=== PATIENT | male | born 1980 | race American Indian/Alaskan Native ===

== ENCOUNTER 2017-10-24 14:28 | Emergency (ER) | payer SELFPAY ==
[2017-10-24 14:41] VITALS: BP 122/83
--- NOTE | 2017-10-24 16:13 | Emergency Department Report ---
ED Chest Pain HPI - General Chief Complaint: Chest Pain Stated Complaint: CHEST SPASM Time Seen by Provider: 10/24/17 15:43 Source: patient Mode of arrival: Ambulatory Limitations: No Limitations - History of Present Illness Initial Comments: 37-year-old male no Arte[place] came past medical history presents to the hospital complaining of chest wall soreness that started while stretching this a.m. Patient states it feels like a muscle strain/spasm. Pain is rated 5/10 in intensity. Pain was worse moving and palpation. Patient took Motrin and Tylenol and now is pain-free. Denies shortness of breath, nausea, vomiting, diaphoresis, Numbness, edema, or history of PE/DVT. 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 He is requesting a work excuse since he did not go into work today. - Related Data Previous Rx's Medication Instructions Recorded Last Taken Type Ibuprofen [Motrin] 800 mg PO Q8HR PRN #30 tablet 10/24/17 Unknown Rx Allergies Allergy/AdvReac Type Severity Reaction Status Date / Time No Known Allergies Allergy Unverified 10/24/17 14:42 Heart Score - HEART Score History: Slightly suspicious EKG: Normal Age: < 45 Risk factors: No known risk factors Troponin: < normal limit (not peformed) HEART Score: 0 ED Review of Systems ROS: Stated complaint: CHEST SPASM Other details as noted in HPI Comment: All other systems reviewed and negative ED Past Medical Hx - Past Medical History Previous Medical History?: No - Surgical History Past Surgical History?: No - Social History Smoking Status: Current Some Day Smoker Substance Use Type: None - Medications Home Medications: Home Medications Medication Instructions Recorded Confirmed Last Taken Type Ibuprofen [Motrin] 800 mg PO Q8HR PRN #30 tablet 10/24/17 Unknown Rx ED Physical Exam - General Limitations: No Limitations - Other Other exam information: General: No limitations, patient is alert in no acute distress Head exam: Atraumatic, normocephalic Eyes exam: Normal appearance, pupils equal reactive to light, extraocular movements intact ENT: Moist mucous membrane, normal oropharynx Neck exam: Normal inspection, full range of motion, no meningismus nontender Respiratory exam: Clear to auscultation bilateral, no wheezes, rales, crackles. Chest wall nontender to Cardiovascular: Normal rate and rhythm, normal heart sounds Abdomen: Soft, nondistended, and nontender, with normal bowel sounds, no rebound, or guarding Extremity: Full range of motion normal inspection no deformity, no calf tenderness or edema Back: Normal Inspection, full range of motion, no tenderness Neurologic: Alert, oriented x3, cranial nerves intact, no motor or sensory deficit Psychiatric: normal affect, normal mood Skin: Warm, dry, intact ED Course Vital Signs 10/24/17 14:36 Temperature 98.3 F Pulse Rate 88 Respiratory 18 Rate Blood Pressure 122/83 O2 Sat by Pulse 97 Oximetry PAWAN score - Pawan Score Age > 65: (0) No Aspirin use within the Past 7 Days: (0) No 3 or more CAD Risk Factors: (0) No 2 or more Angina events in past 24 hrs: (0) No Known CAD with more than 50% Stenosis: (0) No Elevated Cardiac Markers: (0) No ST Deviation Greater than 0.5mm: (0) No PAWAN Score: 0 ED Medical Decision Making - EKG Data -: EKG Interpreted by Ut EKG shows normal: sinus rhythm, axis (qrs 39), QRS complexes (qrsd 77), ST-T waves (no stemi/t inv) Rate: normal - EKG Data When compared to previous EKG there are: previous EKG unavailable - Medical Decision Making Patient appears to be musculoskeletal since exacerbated while stretching Initially reproducible with movement and palpation but improved with over-the- counter medication Work excuse will be provided Follow-up recommended - Differential Diagnosis MSK pain, PE, ME, costochondritis Critical Care Time: No Critical care attestation.: If time is entered above; I have spent that time in minutes in the direct care of this critically ill patient, excluding procedure time. ED Disposition Clinical Impression: Strain of chest wall Disposition: DC-01 TO HOME OR SELFCARE Is pt being admited?: No Does the pt Need Aspirin: No Condition: Stable Instructions: Muscle Strain (ED), Thoracic Pain (ED) Additional Instructions: Take the medication as prescribed. Follow up with your doctor. Return if symptoms worsen as indicated by your discharge instructions Prescriptions: Ibuprofen [Motrin] 800 mg PO Q8HR PRN #30 tablet PRN Reason: Pain, Moderate (4-6) Referrals: [facility] [Provider Group] - 3-5 Days (Primary care clinic) ODALIS BECKER MD [Staff Physician] - 3-5 Days (Primary care doctor) Forms: Work/School Release Form(ED) Time of Disposition: 16:15
== END 2017-10-24 16:47 | disposition home or self-care (01) ==
LOC: ED 14:28
DX: S29.011A Strain of muscle and tendon of front wall of thorax, initial encounter (principal); F17.200 Nicotine dependence, unspecified, uncomplicated; X58.XXXA Exposure to other specified factors, initial encounter; Y93.89 Activity, other specified; Y92.89 Other specified places as the place of occurrence of the external cause; Y99.8 Other external cause status
CPT/HCPCS: 93005; 93010; 99282

== ENCOUNTER 2017-12-04 06:21 | Emergency (ER) | payer SELFPAY ==
[2017-12-04] MEDS ORDERED: ULTRAM PO ONE (06:45)
--- NOTE | 2017-12-04 06:52 | Emergency Department Report ---
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 For probably reveals noted chest soreness this morning 08/12 exacerbated by movement is no shortness of breath no nausea vomiting no back pain no dizziness no cardiac or hypertensive history. Pain is reduced. Reproducible to palpation given her age and history we'll check chest x-ray and EKG if normal will DC to home with nsaids and muscle relaxante for musculoskeletal pain. MD Complaint: chest pain Onset/Timin -: days(s) Onset: during exertion Pain Location: right chest (chest wall ) Pain Radiation: none Severity: moderate Severity scale (0 -10): 4 Quality: aching Consistency: intermittent Improves With: medication-other (ibuprofen ) Worsens With: movement, other (heavy lifting ) re: denies: nausea, vomting, diaphoresis, dyspnea, sense of impending doom Other Symptoms: denies: cough, fever, syncope, rash, acid taste in mouth, leg swelling, palpitations, burping Treatments Prior to Arrival: none Aspirin use within the Past 7 Days: (0) No - Related Data Previous Rx's Medication Instructions Recorded Last Taken Type Ibuprofen [Motrin] 800 mg PO Q8HR PRN #30 tablet 10/24/17 Unknown Rx Cyclobenzaprine [Flexeril] 10 mg PO TID PRN #30 tablet 12/04/17 Unknown Rx Menthol/Camphor [[place] 1 applicatio TP TID PRN #1 tube 12/04/17 Unknown Rx Ointment] Naproxen [Naprosyn] 500 mg PO BID PRN #30 tablet 12/04/17 Unknown Rx Allergies Allergy/AdvReac Type Severity Reaction Status Date / Time No Known Allergies Allergy Verified 12/04/17 06:37 Heart Score - HEART Score History: Slightly suspicious EKG: Normal Age: < 45 Risk factors: No known risk factors Troponin: < normal limit HEART Score: 0 ED Review of Systems ROS: Stated complaint: RT UPPER CHEST PAIN Other details as noted in HPI Constitutional: denies: chills, fever Eyes: denies: eye pain, eye discharge, vision change ENT: denies: ear pain, throat pain Respiratory: denies: cough, shortness of breath, wheezing Cardiovascular: denies: chest pain, palpitations Endocrine: no symptoms reported Gastrointestinal: denies: abdominal pain, nausea, diarrhea Genitourinary: denies: urgency, dysuria Musculoskeletal: myalgia. denies: back pain, joint swelling, arthralgia Skin: denies: rash, lesions Neurological: denies: headache, weakness, paresthesias Psychiatric: denies: anxiety, depression Hematological/Lymphatic: denies: easy bleeding, easy bruising ED Past Medical Hx - Past Medical History Previous Medical History?: No - Surgical History Past Surgical History?: Yes Additional Surgical History: knee right - Social History Smoking Status: Current Every Day Smoker Substance Use Type: Alcohol - Medications Home Medications: Home Medications Medication Instructions Recorded Confirmed Last Taken Type Ibuprofen [Motrin] 800 mg PO Q8HR PRN #30 tablet 10/24/17 Unknown Rx Cyclobenzaprine [Flexeril] 10 mg PO TID PRN #30 tablet 12/04/17 Unknown Rx Menthol/Camphor [[place] 1 applicatio TP TID PRN #1 tube 12/04/17 Unknown Rx Ointment] Naproxen [Naprosyn] 500 mg PO BID PRN #30 tablet 12/04/17 Unknown Rx ED Physical Exam - General Limitations: No Limitations General appearance: alert, in no apparent distress - Head Head exam: Present: atraumatic, normocephalic - Eye Eye exam: Present: normal appearance - ENT ENT exam: Present: mucous membranes moist - Neck Neck exam: Present: normal inspection - Respiratory Respiratory exam: Present: normal lung sounds bilaterally, chest wall tenderness (right sided chest wall tenderness ). Absent: respiratory distress, wheezes, stridor, accessory muscle use, decreased breath sounds, prolonged expiratory - Cardiovascular Cardiovascular Exam: Present: regular rate, normal rhythm. Absent: systolic murmur, diastolic murmur, rubs, gallop - GI/Abdominal GI/Abdominal exam: Present: soft, normal bowel sounds - Rectal Rectal exam: Present: deferred - Extremities Exam Extremities exam: Present: normal inspection, full ROM - Back Exam Back exam: Present: normal inspection. Absent: full ROM, tenderness, CVA tenderness (R), CVA tenderness (L), muscle spasm, paraspinal tenderness, vertebral tenderness, rash noted - Neurological Exam Neurological exam: Present: alert, oriented X3, CN II-XII intact, normal gait - Psychiatric Psychiatric exam: Present: normal affect, normal mood - Skin Skin exam: Present: warm, dry, intact, normal color. Absent: rash ED Course Vital Signs 12/04/17 06:33 Temperature 98.1 F Pulse Rate 79 Respiratory 18 Rate Blood Pressure 146/92 O2 Sat by Pulse 99 Oximetry PAWAN score - Pawan Score Age > 65: (0) No Aspirin use within the Past 7 Days: (0) No 3 or more CAD Risk Factors: (0) No 2 or more Angina events in past 24 hrs: (0) No Known CAD with more than 50% Stenosis: (0) No Elevated Cardiac Markers: (0) No ST Deviation Greater than 0.5mm: (0) No PAWAN Score: 0 ED Medical Decision Making - Radiology Data Radiology results: report reviewed, image reviewed normal cxr: no opaciteies, no infiltrates. - Medical Decision Making will obtain cxr, ekg, if both normal will tx for chest wall pain musculoskeletal pain, discussed same with patient, patient verbalized agreement and understnading of same, pt will dispo'd after results of cxr and ekg: pt care signed out to [employer]. at this time will dispo patient appropriately after diagnostics, pt resting quitely at this time with nad. cxr complete no infiltrates no opacities, ekg completed noted, plan: dc to home wtih nsaids mucle relaxants, follow up with pcp in 2-3 days Critical care attestation.: If time is entered above; I have spent that time in minutes in the direct care of this critically ill patient, excluding procedure time. ED Disposition Clinical Impression: Chest wall muscle strain Qualifiers: Encounter type: initial encounter Qualified Code(s): S29.011A - Strain of muscle and tendon of front wall of thorax, initial encounter Disposition: DC-01 TO HOME OR SELFCARE Is pt being admited?: No Does the pt Need Aspirin: No Condition: Good Instructions: Muscle Strain (ED) Prescriptions: Cyclobenzaprine [Flexeril] 10 mg PO TID PRN #30 tablet PRN Reason: Muscle Spasm Menthol/Camphor [[place] Ointment] 1 applicatio TP TID PRN #1 tube PRN Reason: pain Naproxen [Naprosyn] 500 mg PO BID PRN #30 tablet PRN Reason: pain Referrals: PRIMARY CARE, [Primary Care Provider] - 3-5 Days Forms: Work/School Release Form(ED) Time of Disposition: 07:19
--- NOTE | 2017-12-04 07:11 | XRay Report ---
FINAL REPORT EXAM: XR CHEST ROUTINE 2V HISTORY: chest pain TECHNIQUE: PA and lateral chest radiographs PRIORS: None. FINDINGS: No mediastinal shift. Cardiac silhouette is not enlarged. No pneumothorax, effusion, or focal pulmonary opacity. No acute skeletal finding. IMPRESSION: No focal pulmonary opacity.
[2017-12-04 07:32] VITALS: BP 140/90
== END 2017-12-04 07:31 | disposition home or self-care (01) ==
LOC: ED 06:21
DX: S29.011A Strain of muscle and tendon of front wall of thorax, initial encounter (principal); F17.200 Nicotine dependence, unspecified, uncomplicated; X58.XXXA Exposure to other specified factors, initial encounter; Y93.89 Activity, other specified; Y99.8 Other external cause status; Y92.89 Other specified places as the place of occurrence of the external cause
CPT/HCPCS: 71046; 93005; 93010; 99283